=== PATIENT | female | born 1985 | race Caucasian/White ===

== ENCOUNTER 2017-08-11 19:27 | Day surgery (SDC) | payer OTHER ==
[2017-08-11 20:02] VITALS: BP 116/72; TEMP 98.1; BMI 27.4
[2017-08-11 20:34] LABS: Amnisure Internal Control QC ACCEPTABLE (ACCEPTABLE); Amnisure Test No Membranes Rupture (No Rupture)
--- NOTE | 2017-08-11 22:00 | ULT ---
LIMITED OBSTETRICAL ULTRASOUND: Date: 08-11-17 Comparison: None. History: 32-year-old female undergoing limited sonographic assessment for amniotic fluid index. Technique: Multiplanar grayscale sonographic imaging of the gravid uterus obtained. FINDINGS: A single intrauterine gestation is present with a vertex presentation and a heart rate of 139 b eats/minute. Placenta is located posteriorly. Basket Bottom Machine Operator measures the amniotic fluid index at 9.0 cm. IMPRESSION: Single intrauterine gestation demonstrating a heart rate of 139 beats/minute. Sonographic reports an amniotic fluid index of 9.0 cm. POS: [facility]
--- NOTE | 2017-08-12 00:09 | PRG ---
OB/ER ENCOUNTER DATE OF SERVICE: 08/11/2017 PRIMARY OB: Lidya Cook M.D. CHIEF COMPLAINT: Leakage of fluid. HISTORY OF PRESENT ILLNESS: The patient is a 32-year-old G4, P1 female with an intrauterine pregnanc y at 37 weeks and 4 days, who presented to Labor and Delivery after experiencing a sudden large volum e leakage of fluid at the house. She reports that she was sitting and her toddler came to get on her lap to try to breastfeed. When she noticed that she suddenly got wet and when she realized it was n ot from her baby's diaper and that she had no sensation that she peed on herself and did not have any odor that she thought maybe she had broken her bag of water and so came for evaluation. The patient denies any abdominal pain. She denies any vaginal bleeding. She reports that the leaking stopped s hortly after this episode. The patient denies any recent illness, fever or fall, headache, chest andrew n, shortness of breath, nausea, vomiting, diarrhea, constipation, any new rashes, any back problems, any bleeding, leaking fluid. PAST MEDICAL HISTORY: Negative. PAST SURGICAL FAMILY HISTORY: Negative. SOCIAL HISTORY: Denies drug, alcohol or tobacco use. OB HISTORY: She has gestational diabetes and is controlled on metformin. CURRENT MEDICATIONS: Metformin 1000 mg extended release taken once a day. ALLERGIES: No known drug allergies. OB LABORATORY DATA: Blood type O positive, antibody screen is negative. She is rubella immune. GBS is negative. RPR is nonreactive. HIV nonreactive. Hepatitis B surface antigen nonreactive. One-h our Glucola was 190. Three-hour, 136, 144, 61, 88. REVIEW OF SYSTEMS: Per HPI. PHYSICAL EXAMINATION: VITAL SIGNS: Blood pressure is 116/72, heart rate of 86, respiratory rate 18. GENERAL: She appears to be in no acute distress. She is alert and oriented, and cooperative and ple asant to interact with. HEENT: Head is normocephalic, atraumatic. CHEST: Clear to auscultation bilaterally. HEART: Regular rate and rhythm. ABDOMEN: Gravid, soft, nontender. EXTREMITIES: Nontender. She does have some varicosities on her right lower extremity. PELVIC: Vulva is without masses, lesions or erythema. Perineum appears dry. The vaginal vault also appears dry with some minimal discharge. On Valsalva, the patient has no leaking, no pooling. CERVICAL: 150, -3 station. heart tracing performed for leakage of fluid. Baseline is noted to be in the 120s with moderat e long-term variability, positive accelerations. There are no decelerations. The tocometer does gordo w some irritability with contractions about every 3-5 minutes, not felt by the patient. AmniSure test is negative. Bedside ultrasound shows an ALIZA of 9. ASSESSMENT AND PLAN: The patient is a 32-year-old female complaining of isolated leakage of fluid, n o objective evidence of rupture of membranes at this time, based on AmniSure test, physical exam, and ALIZA. Patient has a category 1 tracing of her fetus. She has been given term labor precautions. patient has an appointment with her doctor, Dr. Cook, next Friday.
== END 2017-08-11 21:40 | disposition home or self-care (01) ==
LOC: L&D/OP 19:27
PROVIDERS: ATTEND Family Medicine
DX: O26.893 Other specified pregnancy related conditions, third trimester (principal); O24.415 Gestational diabetes mellitus in pregnancy, controlled by oral hypoglycemic drugs; Z3A.37 37 weeks gestation of pregnancy; Z79.84 Long term (current) use of oral hypoglycemic drugs; Z79.899 Other long term (current) drug therapy; Z91.018 Allergy to other foods
CPT/HCPCS: 76815; 84112; 99284

== ENCOUNTER 2017-08-28 07:48 | Inpatient (IN) | payer OTHER ==
[2017-08-29 07:51] VITALS: BMI 27.1
[2017-08-29] MEDS: Lactated Ringer's 1,000 ML IV SCH ×3 (08:00→17:53)
[2017-08-29] MEDS ORDERED: LR 500 ML/Oxytocin 10 units 500 ML ONE (08:06)
[2017-08-29] MEDS ORDERED: Ibuprofen 800 MG TAB PO PRN (09:08)
[2017-08-29] MEDS ORDERED: Lidocaine 1% (PF) 30 ML VIAL SC PRN (09:08)
[2017-08-29] MEDS ORDERED: Ondansetron HCl/PF 4 MG/2 ML Vial IVP PRN (09:08)
[2017-08-29] MEDS ORDERED: LR 500 ML/Oxytocin 10 units 500 ML IV SCH (09:15)
[2017-08-29] MEDS ORDERED: Lactated Ringer's 1,000 ML IV SCH (09:15)
[2017-08-29 09:30] LABS: Hemoglobin 12.6 g/dL (12.0-16.0); Mean Corpuscular Hemoglobin 32.9 pg (27.0-31.0); Mean Corpuscular Volume 96.7 fl (81.0-99.0); Mean Platelet Volume 10.5 fL (7.4-10.4); Platelet Count 137 thou/uL (130-400); RBC Distribution Width 13.1 % (11.5-14.5); Red Blood Cell (RBC) Count 3.84 mill/uL (4.20-5.40); White Blood Cell (WBC) Count 8.2 thou/uL (4.8-10.8)
[2017-08-29 10:10] LABS: HBSAg Index 0.24 S/CO (0-0.99); Hep B Surf Ag Non-Reactive S/CO (NonReactive); Syphilis Antibody Nonreactive (Nonreactive); Syphilis Antibody Index 0.03 S/CO (<1.00 Non-Reactive)
[2017-08-29] MEDS ORDERED: Bupivacaine 0.5% 20 ML, Fentanyl 400 MCG in Sodium Chloride 0.9% 72 ML EPIDURAL SCH ×2 (17:30→17:45)
[2017-08-29] MEDS ORDERED: Naloxone HCl 0.4 mg/ml Vial IVP PRN ×2 (17:35)
[2017-08-29] MEDS ORDERED: Eucerin (Mineral Oil/Petrolatum,White) 30 gm Jar TOP PRN (17:35)
[2017-08-29] MEDS ORDERED: Lactated Ringer's 500 ML IV PRN (17:35)
[2017-08-29] MEDS ORDERED: Acetaminophen 325 MG TAB PO PRN (17:35)
[2017-08-29] MEDS ORDERED: ePHEDrine/0.9% NaCl/PF SYRINGE 50 mg/10 ml SLOW IVP PRN (17:35)
[2017-08-29] MEDS ORDERED: Fentanyl 4mcg/Marcaine 0.1% Cassette 100 ML EPIDURAL SCH (17:45)
[2017-08-29] MEDS ORDERED: Communication Order-Pharmacy FS SCH (17:45)
[2017-08-29] MEDS: LR / Pitocin 40 units/1000 ml 1,000 ML IV PRN ×2 (20:23→21:30)
[2017-08-30] MEDS ORDERED: LR / Pitocin 40 units/1000 ml 1,000 ML IV SCH (00:34)
[2017-08-30] MEDS ORDERED: Lanolin Ointment 7 GM TUBE TOP PRN (00:34)
[2017-08-30] MEDS ORDERED: Benzocaine/Menthol 20-0.5% 60 ML CAN TOP PRN (00:34)
[2017-08-30] MEDS ORDERED: Bisacodyl 10 MG SUPP PR PRN (00:34)
[2017-08-30] MEDS ORDERED: Milk Of Magnesia 30 ML UDCUP PO PRN (00:34)
[2017-08-30] MEDS ORDERED: Bupivacaine 0.25% HCL 30 ML VIAL ONE (01:00)
[2017-08-30] MEDS: Ibuprofen 800 MG TAB PO SCH ×3 (06:06→21:40)
[2017-08-30] MEDS: Ferrous Sulfate 325 MG TAB PO SCH ×2 (09:58→17:46)
[2017-08-30] MEDS: HYDROcodone/Acetaminophen 5/325 mg Tablet PO PRN ×2 (09:59→20:35)
[2017-08-30] MEDS: Docusate Calcium (SURFAK) 240 MG CAP PO SCH ×2 (09:59→20:37)
[2017-08-30 17:26] VITALS: TEMP 98
[2017-08-30 22:03] VITALS: BP 103/65
== END 2017-08-30 22:45 | disposition home or self-care (01) | DRG 775 ==
LOC: L&D 08-29 06:51 → 3SW 08-29 23:52
PROVIDERS: ADMIT Family Medicine; ATTEND Family Medicine
PROC: 10E0XZZ Delivery of Products of Conception, External Approach (ICD-10-PCS; principal; 2017-08-29)
PROC: 3E033VJ Introduction of Other Hormone into Peripheral Vein, Percutaneous Approach (ICD-10-PCS; 2017-08-29)
DX: O24.425 Gestational diabetes mellitus in childbirth, controlled by oral hypoglycemic drugs (principal); O48.0 Post-term pregnancy; Z3A.40 40 weeks gestation of pregnancy; Z37.0 Single live birth
CPT/HCPCS: 51702; 85027; 86780; 87340; J3010; J3490; J7050; J7120; S0020

== ENCOUNTER 2017-09-03 19:16 | Emergency (ER) | payer OTHER ==
--- NOTE | 2017-09-03 21:14 | ULT ---
VENOUS DUPLEX STUDY OF RIGHT LOWER EXTREMITY: 09/03/17 INDICATIONS: Right medial thigh pain with edema and redness. The right common femoral vein, femoral vein, profunda and popliteal veins show normal flow and compre ssion. There is thrombus seen in the greater saphenous vein in the distal thigh region. The posterior tibial vein and peroneal vein below the knee show normal flow and compression. IMPRESSION: Thrombus is seen in the greater saphenous vein in the distal thigh. Otherwise, deep veins of the right lower extremity show normal flow and compression. Findings relayed to Dr. Montague. POS: [facility]
[2017-09-03 21:20] LABS: #Basophils 0.1 thou/uL (0.0-0.2); #Eosinphils 0.3 thou/uL (0.0-0.7); #Lymphocytes 2.4 thou/uL (1.20-3.40); #Monocytes 0.7 thou/uL (0.11-0.59); %Basophils 1.3 % (0.0-1.0); %Eosinophils 4.3 % (0.0-10.0); %Lymphocytes 31.8 % (21.0-51.0); %Monocytes 8.8 % (0.0-10.0); %Neutrophils 53.8 % (42.0-75.0); Hemoglobin 14.2 g/dL (12.0-16.0); Mean Corpuscular HGB CONC 32.9 g/dL (32.0-36.0); Mean Corpuscular Hemoglobin 33.4 pg (27.0-31.0); Mean Platelet Volume 9.1 fL (7.4-10.4); Platelet Count 220 thou/uL (130-400); RBC Distribution Width 12.9 % (11.5-14.5); Red Blood Cell (RBC) Count 4.24 mill/uL (4.20-5.40); White Blood Cell (WBC) Count 7.5 thou/uL (4.8-10.8)
[2017-09-03 21:42] LABS: ALT (SGPT) 40 U/L (8-55); AST (SGOT) 27 U/L (5-34); Albumin 3.4 g/dL (3.5-5.0); Alkaline Phosphatase 164 U/L (40-150); Anion Gap 14 mmol/L (10-20); BUN (Urea Nitrogen) 14 mg/dL (7.0-18.7); Bilirubin, Total 0.2 mg/dL (0.2-1.2); Calc. Creatinine Clearance 0 mL/min (70-130); Calcium 9.3 mg/dL (7.8-10.44); Carbon Dioxide 20 mmol/L (22-29); Chloride 109 mmol/L (98-107); Estimated GFR-MDRD Greater than 90; Globulin 3.2 g/dL (2.4-3.5); Glucose 93 mg/dL (70-105); Potassium 3.9 mmol/L (3.5-5.1); Protein, Total 6.6 g/dL (6.0-8.3); Sodium 139 mmol/L (136-145)
== END 2017-09-03 22:25 | disposition home or self-care (01) ==
LOC: ERS 19:16
DX: O87.0 Superficial thrombophlebitis in the puerperium (principal)
CPT/HCPCS: 36415; 80053; 85025